=== PATIENT | male | born 1980 | race Asian ===

== ENCOUNTER 2018-01-15 18:18 | Emergency (ER) | payer BC ==
[2018-01-15] MEDS ORDERED: ONDANSETRON 4 MG/2 ML VIAL IVP ONE (18:39)
[2018-01-15] MEDS ORDERED: NS 1,000 ML IV ONE (18:39)
[2018-01-15] MEDS ORDERED: HYDROmorphONE/DILAUDID 2 MG/ML INJ IVP ONE (18:39)
--- NOTE | 2018-01-15 18:42 | EDPHY ---
H & P Stated Complaint: abd pain Time Seen by Provider: 01/15/18 18:28 HPI/ROS: CHIEF COMPLAINT: Left abdominal pain HISTORY OF PRESENT ILLNESS: Patient is a 37-year-old man who comes to the emergency department complaining of left sided abdominal pain that began abruptly about an hour ago. He has vomited twice. Had some back pain earlier today on the left side. No testicular pain. No discharge. No hematuria. This happened 2 days ago as well and resolved after about 45 min. He did vomit then too. No fever. No history of abdominal surgery. No trauma. No blood in his vomit. Normal bowel movements. No urinary symptoms. REVIEW OF SYSTEMS: Constitutional: denies: chills, fever, recent illness, recent injury EENTM: denies: blurred vision, double vision, nose congestion Respiratory: denies: cough, shortness of breath Cardiac: denies: chest pain, irregular heart rate, lightheadedness, palpitations Gastrointestinal/Abdominal: See HPI Genitourinary: denies: dysuria, frequency, hematuria, pain Musculoskeletal: denies: joint pain, muscle pain Skin: denies: lesions, rash, jaundice, bruising Neurological: denies: headache, numbness, paresthesia, tingling, dizziness, weakness Hematologic/Lymphatic: denies: blood clots, easy bleeding, easy bruising Immunologic/allergic: denies: HIV/AIDS, transplant EXAM: GENERAL: Well-appearing, well-nourished and in no acute distress. HEAD: Atraumatic, normocephalic. EYES: Pupils equal round and reactive to light, extraocular movements intact, sclera anicteric, conjunctiva are normal. ENT: TMs normal, nares patent, oropharynx clear without exudates. Moist mucous membranes. NECK: Normal range of motion, supple without lymphadenopathy or JVD. LUNGS: Breath sounds clear to auscultation bilaterally and equal. No wheezes rales or rhonchi. HEART: Regular rate and rhythm without murmurs, rubs or gallops. ABDOMEN: Left lower quadrant pain but no tenderness, no rebound or guarding no palpable hernia or testicular abnormalities. BACK: No CVA tenderness, no spinal tenderness, step-offs or deformities EXTREMITIES: Normal range of motion, no pitting or edema. No clubbing or cyanosis. NEUROLOGICAL: Cranial nerves II through XII grossly intact. Normal speech, normal gait. 5/5 strength, normal movement in all extremities, normal sensation PSYCH: Normal mood, normal affect. SKIN: Warm, dry, normal turgor, no visible rashes or lesions. Source: Patient Exam Limitations: No limitations - Personal History Current Tetanus/Diphtheria Vaccine: No Current Tetanus Diphtheria and Acellular Pertussis (TDAP): No - Medical/Surgical History Hx Asthma: No Hx Chronic Respiratory Disease: No Hx Diabetes: No Hx Cardiac Disease: No Hx Renal Disease: No Hx Cirrhosis: No Hx Alcoholism: No Hx HIV/AIDS: No Hx Splenectomy or Spleen Trauma: No Other PMH: demise - Family History Significant Family History: No pertinent family hx - Social History Smoking Status: Never smoked Alcohol Use: None Drug Use: None Constitutional: Initial Vital Signs Temperature (C) 36.8 C 01/15/18 18:21 Heart Rate 70 01/15/18 18:21 Respiratory Rate 16 01/15/18 18:21 Blood Pressure 153/97 H 01/15/18 18:21 O2 Sat (%) 96 01/15/18 18:21 O2 Delivery Mode Room Air O2 (L/minute) 96 Allergies/Adverse Reactions: No Known Allergies Allergy (Unverified 01/15/18 18:21) Home Medications: Medication Instructions Recorded Hydrocodone/APAP 5/325 [[place] 1 - 2 tab PO Q4H PRN #10 tab 01/15/18 5/325] Ketorolac Tromethamine 10 mg PO Q6H PRN #16 tab 01/15/18 Ondansetron Odt [Zofran Odt 4 mg 4 mg PO Q4 PRN #20 tab 01/15/18 (RX)] Tamsulosin HCl [Flomax] 0.4 mg PO DAILY #10 cap 01/15/18 Medical Decision Making - Diagnostics Imaging Results: Imaging Impressions Abdomen/Pelvis CT 01/15/18 19:34 Impression: 1. 3 mm distal left ureteral stone with mild ureteral prominence without significant obstructive uropathy. 2. 4 mm left renal stone. 3. Additional findings as above. Findings discussed with Dr. Angel Gil on 01/15/2018 at 19:58. Attention: This CT examination is specifically designed to evaluate patients who are clinically suspected of having acute obstructive uropathy. This examination does not use radiographic contrast, and as such, provides only a limited evaluation of the abdomen, pelvis and retroperitoneum. If there is further clinical suspicion for pathological conditions other than obstructive uropathy, a complete CT evaluation of the abdomen and pelvis utilizing intravenous and oral contrast should be considered. Imaging: Discussed imaging studies w/ boat driver Radiologist ED Course/Re-evaluation: 8:00 p.m. we discussed the CT and lab results. The patient is currently pain free. We discussed the management plan. I will start him on Flomax and Toradol and prescribed him Zofran and Vicodin as well. The patient is happy with this and declines further workup or testing at this time. His for eager to leave. I will give him follow up with Urology. Differential Diagnosis: Partial list of the Differential diagnosis considered include but were not limited to; kidney stone, diverticulitis, hernia and although unlikely based on the history and physical exam, I also considered appendicitis, ischemia, volvulus, gastroenteritis. I discussed these differential diagnoses and the plan with the patient as well as the usual and expected course. The patient understands that the diagnosis is provisional and that in medicine we are not always correct and that further workup is often warranted. Usual and customary warnings were given. All of the patient's questions were answered. The patient was instructed to return to the emergency department should the symptoms at all worsen or return, otherwise to followup with the physician as we discussed. - Data Points Laboratory Results: Laboratory Results 01/15/18 18:30 01/15/18 18:30 01/15/18 01/15/18 01/15/18 19:10 18:30 18:30 Sodium 143 mEq/L mEq/L (135-145) Potassium 3.7 mEq/L mEq/L (3.5-5.2) Chloride 102 mEq/L mEq/L (97-110) Carbon Dioxide 31 mEq/l mEq/l (22-31) Anion Gap 10 mEq/L mEq/L (8-16) BUN 15 mg/dL mg/dL (7-23) Creatinine 0.9 mg/dL mg/dL (0.7-1.3) Estimated GFR > 60 Glucose 101 mg/dL H mg/dL (70-100) Calcium 9.1 mg/dL mg/dL (8.5-10.4) Total Bilirubin Cancelled 0.9 mg/dL mg/dL (0.1-1.4) Conjugated Bilirubin Cancelled 0.4 mg/dL mg/dL (0.0-0.5) Unconjugated Bilirubin Cancelled 0.5 mg/dL mg/dL (0.0-1.1) AST Cancelled 25 IU/L IU/L (17-59) ALT Cancelled 46 IU/L IU/L (21-72) Alkaline Phosphatase Cancelled 49 IU/L IU/L (38-126) Total Protein Cancelled 7.9 g/dL g/dL (6.3-8.2) Albumin Cancelled 4.6 g/dL g/dL (3.5-5.0) Lipase Cancelled 70 IU/L IU/L (23-300) Urine Color YELLOW Urine Appearance MODERATELY TURBID Urine pH 8.0 H (5.0-7.5) Ur Specific [place] 1.019 (1.002-1.030) Urine Protein 1+ H (NEGATIVE) Urine Ketones NEGATIVE (NEGATIVE) Urine Blood 3+ H (NEGATIVE) Urine Nitrate NEGATIVE (NEGATIVE) Urine Bilirubin NEGATIVE (NEGATIVE) Urine Urobilinogen NEGATIVE EU EU (0.2-1.0) Ur Leukocyte Esterase NEGATIVE (NEGATIVE) Urine RBC 50-182 /hpf H /hpf (0-3) Urine WBC 10-15 /hpf H /hpf (0-3) Ur Epithelial Cells Not Reported Urine Mucus 2+ /lpf H /lpf (NONE-1+) Urine Glucose NEGATIVE (NEGATIVE) Medications Given: Discontinued Medications Hydromorphone HCl (Dilaudid) 1 mg IVP EDNOW ONE Stop: 01/15/18 18:40 Last Admin: 01/15/18 18:47 Dose: 1 mg Sodium Chloride (Ns) 1,000 mls @ 0 mls/hr IV EDNOW ONE; Wide Open PRN Reason: Protocol Stop: 01/15/18 18:40 Last Admin: 01/15/18 18:47 Dose: 1,000 mls Ketorolac Tromethamine (Toradol) 30 mg IVP EDNOW ONE Stop: 01/15/18 20:03 Last Admin: 01/15/18 20:07 Dose: 30 mg Ondansetron HCl (Zofran) 4 mg IVP EDNOW ONE Stop: 01/15/18 18:40 Last Admin: 01/15/18 18:48 Dose: 4 mg Tamsulosin HCl (Flomax) 0.4 mg PO EDNOW ONE Stop: 01/15/18 20:03 Last Admin: 01/15/18 20:07 Dose: 0.4 mg Departure - Departure Disposition: Home, Routine, Self-Care Clinical Impression: Calculus of left kidney Condition: Fair Instructions: Kidney Stones (ED) Referrals: NONE *PRIMARY CARE P,. [Primary Care Provider] - As per Instructions Eduardo Maynard MD [Medical Doctor] - As per Instructions Prescriptions: Hydrocodone/APAP 5/325 [[place] 5/325] 1 - 2 tab PO Q4H PRN #10 tab PRN Reason: Pain, Moderate Ketorolac Tromethamine 10 mg PO Q6H PRN #16 tab PRN Reason: Pain/inflammation Ondansetron Odt [Zofran Odt 4 mg (RX)] 4 mg PO Q4 PRN #20 tab PRN Reason: Nausea & Vomiting Tamsulosin HCl [Flomax] 0.4 mg PO DAILY #10 cap
[2018-01-15 18:44] LABS: PLATELET COUNT 281 10^3/uL (150-400)
[2018-01-15] MEDS ORDERED: TAMSULOSIN HCL 0.4 MG CAP PO ONE (20:02)
[2018-01-15] MEDS ORDERED: KETOROLAC 30 MG/1 ML SDV IVP ONE (20:02)
[2018-01-15 20:14] VITALS: BP 118/68
== END 2018-01-15 20:14 | disposition home or self-care (01) ==
DX: N20.0 Calculus of kidney (principal); E86.9 Volume depletion, unspecified
CPT/HCPCS: 96374; J1170; J1885; J2405